=== PATIENT | female | born 1970 | race Caucasian/White ===

== ENCOUNTER 2020-12-10 06:42 | Day surgery (SDC) | payer SELFPAY ==
[~2020-12-10 06:42] MED LIST: Lactated Ringers 1,000 ML IV ONE; XYLOCAINE 1% HCL 20 ML MDV ONE
[2020-12-10] MEDS ORDERED: Lactated Ringers 1,000 ML IV ONE (07:24)
[2020-12-10] MEDS ORDERED: Lactated Ringers 1,000 ML IV SCH (07:30)
[2020-12-10] MEDS ORDERED: SUBLIMAZE 100 MCG/2 ML ONE (08:55)
[2020-12-10] MEDS ORDERED: DIPRIVAN 200 MG/20 ML IV ONE ×3 (08:55→09:57)
[2020-12-10] MEDS ORDERED: Versed 2 MG/2 ML Injection ONE (08:55)
[2020-12-10] MEDS ORDERED: Xylocaine-Mpf 2% 5 Ml Vial ONE (08:55)
[2020-12-10] MEDS ORDERED: XYLOCAINE 1%/Epi 1:100000 MDV 20 ML ONE (09:09)
[2020-12-10 11:19] VITALS: BP 159/85; PULSE 63; O2SAT 94
--- NOTE | 2020-12-10 14:55 | OP ---
SURGERY DATE/TIME: 12/10/2020 0900 PREOPERATIVE DIAGNOSES: Near complete laceration of the right ear lobule earring hole secondary to heavy earrings. POSTOPERATIVE DIAGNOSES: Near complete laceration of the right ear lobule earring hole secondary to heavy earrings. PROCEDURE: Repair of near complete laceration of right ear lobule earring hole using a transposition flap. SURGEON: Shawn Mackay M.D. ANESTHESIA: Monitored anesthesia care - Babar Medina CRNA. 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 Tejada, for evaluation of the patient's near complete laceration of the patient's right ear lobule earring hole. The patient states that she wore heavy earrings for the past about 30 years ago and because of this she has slowly developed laceration of bilateral ear lobule earring holes right worse than the left. The one on the right side she states is worse and there is just a small skin bridge present and she is concerned that this will eventually completely become lacerated. Examination visit of 11/16/2020 revealed that the patient has a near complete laceration of the right ear lobule earring hole with a thin skin bridge measuring 1.5 mm. The left ear lobule earring hole appears to be intact. Treatment plan has been discussed with the patient in the presence of her , Charbel, which is perform repair of the near complete laceration of the patient's right ear lobule earring fold and reconstruction using a transposition flap. The patient and were informed that the time of the surgery the near complete laceration will be converted into complete laceration in order to perform the above contemplated procedure. The place of surgery was discussed with the patient which could either be in the office or the hospital and the patient decided to have her surgery in the office performed under local anesthetic. The risks involved and the procedure was discussed with the patient which includes infection, bleeding, poor scar, recurrence and need for further surgery. The patient stated that she understands. Because of the COVID-19 pandemic the patient was also informed that she could develop COVID-19 in the course of her treatment and other option was to perform the procedure at a later date once the pandemic is over. However, the patient states that she would like to proceed with her surgery in the office. The patient was subsequently seen in my office on 10/11/2020 and prior to the procedure the patient's blood pressure was elevated. It was then decided not to perform surgery in the office and she was advised to have it done in the hospital as an outpatient under monitored anesthesia care. The patient during that day called back the office and repeat blood pressure at 11:00 a.m. showed the blood pressure 146/92. The patient then was seen back in my office on 12/06/2020 and she states her blood pressure has been normal and that she would like to proceed with the contemplated surgery for repair of the near complete laceration of her right ear lobule using a transposition flap. She agreed to have her surgery performed as an outpatient under monitored anesthesia care at [facility]. Again, the risks and complications of the procedure discussed with the patient and the patient's which includes infection, bleeding, poor scar, possible recurrence and need for further surgery. She signed informed consent and a copy was given to her again. Because of the COVID-19 pandemic the patient was informed that she could develop COVID-19 in the course of her treatment. However, the patient decided to proceed with her surgery as scheduled under monitored anesthesia care at [facility] for today 12/10/2020. DESCRIPTION OF PROCEDURE AND FINDINGS: While the patient was in a sitting position for excision of the anterior and posterior skin cleft was then marked on the patient's right ear lobule including the midline of the ear lobule. After skin markings were made then the patient taken into the OR and placed in a supine position with the head end of the bed elevated at 20-30 degrees and the left head turned towards the left side. Time out was then obtained. Since there were no issues found the procedure was then performed as scheduled. The patient's right ear was then prepped with Betadine and draped in the usual sterile fashion. Local infiltration anesthesia using 1% Xylocaine with epinephrine was injected at the proposed site of the incision and 1.2 cc of the solution was used. After the anesthetic had taken effect, the skin from the cleft of both anterior and posterior were then incised using a #15 blade knife up to the base of the flap. It was decided at this point to use the posterior cleft at the transposition flap. The anterior skin flap was then excised at the base and the transposition flap from the posterior skin flap was then created by suturing the posterior skin flap to the anterior base where the skin was excised using interrupted buried sutures of 6-0 Vicryl. A temporary suture here was then placed through the reconstructed earring hole using the transposition flap using 3-0 Vicryl suture. The repair of skin excision was then performed as anatomically as possible in layers. Dermis subcutaneous tissue was closed using interrupted buried sutures of 6-0 Vicryl and epidermis and dermis was then repaired as anatomically as possible using interrupted sutures of 6-0 Nylon. After this was performed it was noted that there is satisfactory closure of the earring hole in the patient's right ear lobule earring hole using the transposition flap. The temporary suture here was then tied at this point and the area of the skin closure was further augmented using Mastisol and Steri-Strip. The procedure was then terminated. The patient tolerated the procedure well without any undue complications. The patient's postoperative care was discussed with her and with her , Charbel, and a copy of instruction sheet will be given to the patient prior to her discharge. The patient was also given a brochure of how to prevent deep vein thrombosis and pulmonary embolus postoperative. The patient is advised to leave the Steri-Strip and to keep dry until her next office visit. The patient is to take Tylenol grain 5 one to two tablets every 4 hours as needed for pain. The patient is to see me back in my office on 12/18/2020 for follow up or sooner if she has any problems.
== END 2020-12-10 11:32 | disposition home or self-care (01) ==
LOC: SDC 06:42
PROVIDERS: ATTEND Surgery Plastic and Reconstructive Surgery
DX: S01.311A Laceration without foreign body of right ear, initial encounter (principal); I10 Essential (primary) hypertension; Z79.899 Other long term (current) drug therapy
CPT/HCPCS: 84703; J2250; J2704; J3010